=== PATIENT | male | born 1945 | race Caucasian/White ===

== ENCOUNTER 2017-04-16 10:15 | Emergency (ER) | payer MEDICARE ==
--- NOTE | 2017-04-16 10:19 | ED ---
Skin Complaint - HPI Summary HPI Summary: 71 YEAR OLD MALE PRESENTS WITH A SOFT TISSUE MASS ON THE BACK OF HIS HEAD. - History of Current Complaint Time Seen by Provider: 04/16/17 10:18 Stated Complaint: SKIN COMPLAINT Hx Obtained From: Patient Onset/Duration: Started Minutes Ago Timing: Constant Onset Severity: Moderate Current Severity: Moderate Pain Scale Used: 0-10 Numeric - 5 Skin Location: Discrete - BACK OF HEAD Aggravating Symptom(s): Nothing Alleviating Symptom(s): Nothing - Allergy/Home Medications Allergies/Adverse Reactions: Allergies Allergy/AdvReac Type Severity Reaction Status Date / Time No Known Allergies Allergy Verified 04/16/17 10:33 Home Medications: Home Medications Aspirin EC Low Dose* [Ecotrin EC Low Dose 81 MG*] 81 mg PO DAILY 04/16/17 [ History Confirmed 04/16/17] Cephalexin CAP* [Keflex CAP*] 500 mg PO TID 04/16/17 [History Confirmed 04/16/17 ] Cholecalciferol TAB* [Vitamin D TAB*] 1,000 unit PO DAILY 04/16/17 [History Confirmed 04/16/17] Furosemide TAB* [Lasix TAB*] 40 mg PO DAILY 04/16/17 [History Confirmed 04/16/17 ] Gabapentin CAP(*) [Neurontin 100 mg CAP(*)] 100 mg PO TID 04/16/17 [History Confirmed 04/16/17] Liraglutide (NF) [Victoza (NF)] 1.8 mg SUBCUT DAILY 04/16/17 [History Confirmed 04/16/17] Methocarbamol TAB* [Robaxin 500 MG TAB*] 750 mg PO TID PRN 04/16/17 [History Confirmed 04/16/17] Metoprolol Tartrate TAB* [Lopressor TAB*] 12.5 mg PO DAILY 04/16/17 [History Confirmed 04/16/17] Multivitamins/Minerals TAB* [Thera M Plus TAB*] 1 tab PO DAILY 04/16/17 [ History Confirmed 04/16/17] Mupirocin 2% CREAM* [Bactroban 2% CREAM*] 1 applic TOPICAL TID 04/16/17 [ History Confirmed 04/16/17] Nabumetone TAB* [Relafen TAB*] 750 mg PO BID PRN 04/16/17 [History Confirmed 09/01] Potassium Chlor TAB* [Klor Con ER TAB*] 10 meq PO DAILY 04/16/17 [History Confirmed 04/16/17] Simvastatin TAB(NF) [Zocor(NF)] 80 mg PO BEDTIME 04/16/17 [History Confirmed 09/01] Terazosin CAP* [Hytrin CAP*] 10 mg PO DAILY 04/16/17 [History Confirmed 04/16/17 ] Valsartan TAB* [Diovan TAB*] 320 mg PO DAILY 04/16/17 [History Confirmed ] metFORMIN* [Glucophage 1000 MG TAB *] 1,000 mg PO BID 04/16/17 [History Confirmed 04/16/17] PMH/Surg Hx/FS Hx/Imm Hx Previously Healthy: Yes Review of Systems Constitutional: Negative Eyes: Negative ENT: Negative Cardiovascular: Negative Respiratory: Negative Gastrointestinal: Negative Genitourinary: Negative Musculoskeletal: Negative Positive: Other - SOFT TISSUE MASS ON BACK OF HEAD Psychological: Normal All Other Systems Reviewed And Are Negative: Yes Physical Exam Triage Information Reviewed: Yes Vital Signs Reviewed: Yes Appearance: Positive: Well-Appearing Skin: Positive: Other - SOFT TISSUE MASS ON BACK OF HEAD Course/Dx - Diagnoses Provider Diagnoses: Soft tissue abscess Discharge - Discharge Plan Condition: Stable Disposition: HOME Patient Education Materials: Soft Tissue Mass (ED) Referrals: Bertram Huerta MD [Primary Care Provider] - Additional Instructions: PLEASE FOLLOW UP WITH YOUR S[employer]EING [employer] OPERATOR TO RULE OUT MALIGNANCY OF SOFT TISSUE MASS.
[2017-04-16 10:46] VITALS: BP 120/74
== END 2017-04-16 10:48 | disposition home or self-care (01) ==
LOC: UCCORT 10:15
DX: L02.811 Cutaneous abscess of head [any part, except face] (principal)
CPT/HCPCS: 99212; G0463